=== PATIENT | male | born 1970 | race Caucasian/White ===

== ENCOUNTER → 2017-12-10 09:05 | Outpatient (CLI) | payer OTHER, SELFPAY | PROVIDERS: Visit Provider Nurse Practitioner Family | DX: R53.83 Other fatigue (principal); R10.12 Left upper quadrant pain; R11.0 Nausea; K85.90 Acute pancreatitis without necrosis or infection, unspecified; F41.9 Anxiety disorder, unspecified | CPT/HCPCS: 80053; 80061; 82652; 84439; 84443; 85025 ==

== ENCOUNTER → 2017-12-10 09:37 | Outpatient (REF) | payer OTHER, SELFPAY ==
[2017-12-10 10:06] LABS: Basophils # 0.1 K/mm3 (0-0.2); Basophils % 0.7 % (0.1-2.0); Eosinophils # 0.2 K/mm3 (0.0-0.4); Eosinophils % 2.6 % (0.1-12.0); Hematocrit 41.5 % (42.0-52.0); Hemoglobin 13.9 g/dL (14.1-18.0); Lymphocytes # 1.6 K/mm3 (0.7-4.5); Lymphocytes % 19.9 K/mm3 (10-50); Mean Corpuscular HGB Conc 33.6 g/dL (31.8-35.4); Mean Corpuscular Hemoglobin 29.5 pg (27.0-31.2); Mean Corpuscular Volume 87.8 fl (80-94); Mean Platelet Volume 8.5 fl (7.4-10.4); Monocytes # 0.5 K/mm3 (0.1-1.0); Monocytes % 6.2 % (1.7-9.3); Neutrophils # 5.8 K/mm3 (1.8-7.8); Neutrophils % 70.6 % (37.0-80.0); Platelet Count 199 K/mm3 (142-424); Red Blood Count 4.73 M/mm3 (4.60-6.20); Red Cell Distribution Width 13.9 % (11.5-17.5); White Blood Count 8.2 K/mm3 (4.8-10.8)
[2017-12-10 10:35] LABS: Glucose,Fasting 118 mg/dL (60-105)
[2017-12-10 11:21] LABS: Alanine Aminotransferase 34 U/L (12-78); Albumin Level 4.1 gm/dL (3.4-5.0); Albumin/Globulin Ratio 1.1 (1.1-1.8); Alkaline Phosphatase 68 U/L (46-116); Anion Gap 13.6 mEq/L (5-15); Aspartate Amino Transferase 13 U/L (15-37); Bilirubin,Total 0.4 mg/dL (0.2-1.0); Blood Urea Nitrogen 39 mg/dL (7-18); Calcium 8.6 mg/dL (8.5-10.1); Carbon Dioxide 29 mmol/L (21.0-32.0); Chloride 103 mmol/L (98-107); Cholesterol 129 mg/dL (140-200); Creatinine,Serum 2.14 mg/dL (0.70-1.30); Estimated Glomerular Filt Rate 33 ml/min (>60); Free T4 (Free Thyroxine) 0.75 ng/dl (0.76-1.46); GFR (African American) 40 ML/MIN (>60); Globulin 3.6 gm/dl (1.3-3.2); Glucose 110 mg/dL (74-106); HDL Cholesterol 66 mg/dL (27-67); LDL Cholesterol 54 mg/dL (0-130); Potassium 4.6 mmoL/L (3.5-5.1); Sodium 141 mmol/L (136-145); Thyroid Stimulating Hormone 4.65 uIU/ml (0.358-3.740); Total Protein,Serum 7.7 gm/dL (6.4-8.2); Triglycerides 43 mg/dL (30-200); VLDL Cholesterol 9 mg/dL (0-40)
[2017-12-10 11:24] LABS: Glucose 1 Hour 225 mg/dL
[2017-12-10 13:15] LABS: Glucose 2 Hour 167 mg/dL
[2017-12-12 11:10] LABS: Vitamin D 25 Hydroxy 25.6 ng/mL (30.0-100.0)
== END ==
LOC: LAB 09:37
PROVIDERS: Nurse Practitioner Family; Family Provider Emergency Medicine; PCP Emergency Medicine; Visit Provider Internal Medicine
DX: R53.83 Other fatigue (principal)
CPT/HCPCS: 36415; 80053; 80061; 82652; 82951; 84439; 84443; 85025

== ENCOUNTER → 2018-01-14 13:01 | Outpatient (CLI) | payer OTHER, SELFPAY ==
[2018-01-14 15:03] LABS: Anion Gap 14.2 mEq/L (5-15); Blood Urea Nitrogen 29 mg/dL (7-18); Carbon Dioxide 29 mmol/L (21.0-32.0); Chloride 102 mmol/L (98-107); Creatinine,Serum 1.41 mg/dL (0.70-1.30); Estimated Glomerular Filt Rate 54 ml/min (>60); GFR (African American) 65 ML/MIN (>60); Glucose 143 mg/dL (74-106); Potassium 4.2 mmoL/L (3.5-5.1); Sodium 141 mmol/L (136-145)
== END ==
PROVIDERS: PCP Emergency Medicine; Visit Provider Internal Medicine
DX: I25.10 Atherosclerotic heart disease of native coronary artery without angina pectoris (principal); Z95.5 Presence of coronary angioplasty implant and graft; I11.9 Hypertensive heart disease without heart failure; I25.2 Old myocardial infarction; F51.01 Primary insomnia; G47.33 Obstructive sleep apnea (adult) (pediatric); F17.200 Nicotine dependence, unspecified, uncomplicated; F10.10 Alcohol abuse, uncomplicated
CPT/HCPCS: 36415; 80048

== ENCOUNTER → 2018-04-11 08:09 | Outpatient (CLI) | payer OTHER, SELFPAY ==
--- NOTE | 2018-04-11 08:13 | CA_ITS ---
PROCEDURE: 2-D M-mode and color Doppler study INDICATIONS FOR THE TEST: Chest pain+ COPD Heart Murmur Tobacco Smoking+ Palpitations Fatigue+ Syncope Edema Hypertension+Diabetes Mellitus Rheumatic Fever SOB+EASTON+Obesity+Hyperlipidemia+ Family History HD Additional History dizziness, MARKOS, Hx of CM Definity utilized per order PATIENT INFORMATION HEIGHT: 73 WEIGHT:287 GENDER: Male B/P: 137/88 2-D/M-MODE INTERPRETATION: 2-D MEASUREMENTS OBSERVED VALUES IN CMS Right Ventricular Dimension (RVDd) 2.3 Interventricular Septum (Thickness)(IVsd) 1.2 Left Ventricular Internal Dimensions(LVIDd) 6.0 Left Ventricular Posterior Wall (Thickness)(LVPWd) 1.2 Aortic Root 3.1 Aortic Cusp Separation 2.3 Left Atrial Dimensions (LAD) 3.9 2D 1. Left atrium is mildly enlarged, left ventricle is mildly dilated, there is mild concentric left ventricular hypertrophy, there is reduced left ventricular systolic function, visually estimated ejection fraction 30%, there is mild hypo to akinesis involving mid to distal septum, anterior, anteroapical and inferobasal wall. There is no left ventricular thrombus seen, Definity contrast was utilized to delineate endocardial surfaces. 2. The right atrium and right ventricle are normal size and contractility. 3. The aortic valve is minimally thickened and fibrosed. 4. The mitral and tricuspid valve leaflets are minimally thickened. 5. The pulmonic valve is poorly visualized. 6. No significant pericardial effusion noted. DOPPLER INTERROGATION Doppler interrogation of the aortic, mitral and tricuspid valvular presence of mild mitral and tricuspid regurgitation, grade 1 diastolic dysfunction seen with tissue Doppler evidence of raised left atrial pressure. CONCLUSION: 1. Mildly enlarged left atrium, mildly dilated left ventricle, mild concentric left ventricular hypertrophy, visually estimated ejection fraction 30% with segmental wall motion abnormality described above, there is no left ventricular thrombus seen, Definity contrast was utilized to delineate endocardial surfaces. Grade 1 diastolic dysfunction seen with tissue Doppler evidence of raised left atrial pressure. 2. Mild mitral and tricuspid regurgitation 3. No significant pericardial effusion noted.
== END ==
PROVIDERS: Family Provider Emergency Medicine; PCP Emergency Medicine; Visit Provider Internal Medicine Cardiovascular Disease
DX: R07.2 Precordial pain (principal); Z86.79 Personal history of other diseases of the circulatory system
CPT/HCPCS: 93306

== ENCOUNTER → 2018-06-18 20:25 | Outpatient (CLI) | payer OTHER, SELFPAY | PROVIDERS: PCP Emergency Medicine; Visit Provider Internal Medicine Cardiovascular Disease | DX: G47.33 Obstructive sleep apnea (adult) (pediatric) (principal); I10 Essential (primary) hypertension | CPT/HCPCS: 95810 ==

== ENCOUNTER → 2018-06-24 14:22 | Outpatient (CLI) | payer OTHER, SELFPAY ==
[2018-06-24 15:20] LABS: Anion Gap 16.2 mEq/L (5-15); Blood Urea Nitrogen 24 mg/dL (7-18); Calcium 9.6 mg/dL (8.5-10.1); Carbon Dioxide 28 mmol/L (21.0-32.0); Chloride 101 mmol/L (98-107); Creatinine,Serum 1.58 mg/dL (0.70-1.30); Estimated Glomerular Filt Rate 47 ml/min (>60); GFR (African American) 57 ML/MIN (>60); Glucose 145 mg/dL (74-106); Potassium 4.2 mmoL/L (3.5-5.1); Sodium 141 mmol/L (136-145)
== END ==
PROVIDERS: PCP Emergency Medicine; Visit Provider Physician Assistant
DX: I42.9 Cardiomyopathy, unspecified (principal); I50.9 Heart failure, unspecified
CPT/HCPCS: 36415; 80048; 83880

== ENCOUNTER → 2018-07-08 13:29 | Outpatient (CLI) | payer OTHER, SELFPAY ==
[2018-07-08 16:07] LABS: Anion Gap 13.8 mEq/L (5-15); Blood Urea Nitrogen 28 mg/dL (7-18); Calcium 9.1 mg/dL (8.5-10.1); Carbon Dioxide 29 mmol/L (21.0-32.0); Chloride 105 mmol/L (98-107); Creatinine,Serum 1.31 mg/dL (0.70-1.30); Estimated Glomerular Filt Rate 59 ml/min (>60); GFR (African American) 71 ML/MIN (>60); Glucose 110 mg/dL (74-106); Potassium 4.8 mmoL/L (3.5-5.1); Sodium 143 mmol/L (136-145)
== END ==
PROVIDERS: Family Provider Emergency Medicine; PCP Emergency Medicine; Visit Provider Physician Assistant
DX: I11.9 Hypertensive heart disease without heart failure (principal)
CPT/HCPCS: 36415; 80048

== ENCOUNTER → 2018-07-10 15:01 | Outpatient (CLI) | payer OTHER, SELFPAY ==
--- NOTE | 2018-07-10 15:01 | CA_ITS ---
PROCEDURE: 2-D M-mode and color Doppler study INDICATIONS FOR THE TEST: Chest painx COPD Heart Murmur Tobacco Smokingx Palpitationsx Fatigue Syncope Edema HypertensionxDiabetes Mellitus Rheumatic Fever SOBxDOE Obesity Hyperlipidemiax Family History HD Additional History Old VA, Pericarditis Definity contrast utilized. PATIENT INFORMATION HEIGHT: 6'1'' WEIGHT: 289 GENDER: Male B/P: 134/79 2-D/M-MODE INTERPRETATION: 2-D MEASUREMENTS OBSERVED VALUES IN CMS Right Ventricular Dimension (RVDd) 2.6 Interventricular Septum (Thickness)(IVsd) 1.0 Left Ventricular Internal Dimensions(LVIDd) 5.7 Left Ventricular Posterior Wall (Thickness)(LVPWd) 1.0 Aortic Root 2.9 Aortic Cusp Separation 2.3 Left Atrial Dimensions (LAD) 4.6 2D 1. Left atrium is mildly enlarged, left ventricle is normal size, visually estimated ejection fraction approximately 40%, there is marked hypokinesis involving mid to distal septum, anteroapical and apical wall. 2. The right atrium and right ventricle are normal size and contractility. 3. The aortic valve is minimally thickened and fibrosed. 4. The mitral and tricuspid valve are grossly normal. 5. The pulmonic valve is poorly visualized. 6. No significant pericardial effusion noted. DOPPLER INTERROGATION: Doppler interrogation of the aortic, mitral and tricuspid valvular presence of mild mitral and tricuspid regurgitation, tricuspid regurgitation jet velocity is insufficient for calculation of the right ventricular systolic pressure, grade 1 diastolic dysfunction seen with tissue Doppler evidence of raised left atrial pressure. CONCLUSION: 1. Mildly enlarged left atrium, normal left ventricular size, visually estimated ejection fraction of 40% with segmental wall motion abnormalities described above, Definity contrast was utilized to delineate endocardial surfaces. Grade 1 diastolic dysfunction seen with tissue Doppler evidence of raised left atrial pressure. 2. Mild mitral and tricuspid regurgitation 3. No significant pericardial effusion noted.
== END ==
PROVIDERS: Family Provider Emergency Medicine; PCP Emergency Medicine; Visit Provider Internal Medicine
DX: I31.9 Disease of pericardium, unspecified (principal); I11.9 Hypertensive heart disease without heart failure; F17.200 Nicotine dependence, unspecified, uncomplicated
CPT/HCPCS: 93306

== ENCOUNTER → 2018-10-16 18:02 | Outpatient (CLI) | payer OTHER, SELFPAY ==
[2018-10-16 19:41] LABS: Basophils # 0.1 K/mm3 (0-0.2); Basophils % 0.9 % (0.1-2.0); Eosinophils # 0.3 K/mm3 (0.0-0.4); Eosinophils % 3.6 % (0.1-12.0); Hematocrit 43.6 % (42.0-52.0); Hemoglobin 14.4 g/dL (14.1-18.0); Lymphocytes # 2.2 K/mm3 (0.7-4.5); Lymphocytes % 30.9 % (10-50); Mean Corpuscular HGB Conc 33.1 g/dL (31.8-35.4); Mean Corpuscular Hemoglobin 28.9 pg (27.0-31.2); Mean Corpuscular Volume 87.3 fl (80-94); Mean Platelet Volume 8.6 fl (7.4-10.4); Monocytes # 0.5 K/mm3 (0.1-1.0); Monocytes % 7.3 % (1.7-9.3); Neutrophils # 4.1 K/mm3 (1.8-7.8); Neutrophils % 57.3 % (37.0-80.0); Platelet Count 240 K/mm3 (142-424); Red Cell Distribution Width 13.6 % (11.5-17.5); White Blood Count 7.1 K/mm3 (4.8-10.8)
[2018-10-16 20:32] LABS: Alanine Aminotransferase 35 U/L (12-78); Albumin Level 4.2 gm/dL (3.4-5.0); Albumin/Globulin Ratio 1.2 (1.1-1.8); Alkaline Phosphatase 77 U/L (46-116); Anion Gap 15.8 mEq/L (5-15); Aspartate Amino Transferase 16 U/L (15-37); Bilirubin,Total 0.4 mg/dL (0.2-1.0); Blood Urea Nitrogen 23 mg/dL (7-18); Calcium 8.7 mg/dL (8.5-10.1); Carbon Dioxide 29 mmol/L (21.0-32.0); Chloride 101 mmol/L (98-107); Chol/HDL Ratio 2.7 (1-3.5); Cholesterol 136 mg/dL (140-200); Creatinine,Serum 1.47 mg/dL (0.70-1.30); Estimated Glomerular Filt Rate 51 ml/min (>60); GFR (African American) 62 ML/MIN (>60); Globulin 3.5 gm/dl (1.3-3.2); Glucose 122 mg/dL (74-106); HDL Cholesterol 50 mg/dL (27-67); LDL Cholesterol 68 mg/dL (0-130); Potassium 4.8 mmoL/L (3.5-5.1); Sodium 141 mmol/L (136-145); T4 (Thyroxine) 7.5 ug/dl (4.7-13.3); Thyroid Stimulating Hormone 4.17 uIU/ml (0.358-3.740); Total Protein,Serum 7.7 gm/dL (6.4-8.2); Triglycerides 90 mg/dL (30-200); VLDL Cholesterol 18 mg/dL (0-40)
[2018-10-17 13:49] LABS: Hemoglobin A1C 6.1 % (0.0-7.0)
[2018-10-18 10:58] LABS: PSA, Free 0.07 ng/mL; Prostate Specific Ag 0.2 ng/mL (0.0-4.0)
== END ==
PROVIDERS: Visit Provider Physician Assistant
DX: E03.9 Hypothyroidism, unspecified (principal)
CPT/HCPCS: 80053; 80061; 82652; 83036; 84153; 84154; 84436; 84443; 85025

== ENCOUNTER → 2018-11-13 12:35 | Outpatient (CLI) | payer OTHER, SELFPAY ==
--- NOTE | 2018-11-13 12:41 | XR_ITS ---
XR shoulder RT min 2V HISTORY: Right shoulder pain ITS.REASON: Bilateral shoulder pain ORDERING PHYSICIAN: DUNIA Cordero PATIENT AGE: 48 years Comparison: None FINDINGS: There is moderate subacromial stenosis 5 mm with osteoarthritic changes of the glenohumeral joint. There are hypertrophic changes along the inferior surface of the acromion Osteophyte formation is present along the inferior aspect of the humeral head and glenoid fossa. IMPRESSION: Subacromial stenosis with osteoarthritis
--- NOTE | 2018-11-13 12:41 | XR_ITS ---
XR shoulder LT min 2V HISTORY: Left shoulder pain ITS.REASON: Bilateral shoulder pain ORDERING PHYSICIAN: DUNIA Cordero PATIENT AGE: 48 years Comparison: None FINDINGS: There is moderate subacromial stenosis of 5 mm. No fracture or dislocation. Calcification is noted along the humeral head laterally and could be due to bony hypertrophy or calcific tendinitis. Otherwise negative IMPRESSION: Subacromial stenosis with possible calcific tendinitis of the left shoulder
== END ==
PROVIDERS: PCP Physician Assistant; Visit Provider Physician Assistant
DX: M25.511 Pain in right shoulder (principal); M25.512 Pain in left shoulder
CPT/HCPCS: 73030

== ENCOUNTER → 2018-11-26 07:29 | Outpatient (CLI) | payer OTHER, SELFPAY ==
--- NOTE | 2018-11-26 07:34 | CA_ITS ---
PROCEDURE: 2-D echo Doppler INDICATIONS FOR THE TEST: Chest pain+ COPD Heart Murmur Tobacco Smoking+ Palpitations Fatigue Syncope Edema+ Hypertension+Diabetes Mellitus Rheumatic Fever SOB+EASTON+Obesity+Hyperlipidemia+ Family History HD Additional History cad,cm PATIENT INFORMATION HEIGHT: 73 WEIGHT:318 GENDER: Male B/P:140/96 2-D/M-MODE INTERPRETATION: 2-D MEASUREMENTS OBSERVED VALUES IN CMS Right Ventricular Dimension (RVDd) 2.4 Interventricular Septum (Thickness)(IVsd) 0.9 Left Ventricular Internal Dimensions(LVIDd) 5.8 Left Ventricular Posterior Wall (Thickness)(LVPWd) 0.9 Aortic Root 2.6 Aortic Cusp Separation 2.2 Left Atrial Dimensions (LAD) 4.6 2D 1. Technically difficult study because of the patient's factor and poor acoustic windows 2. The left atrium is mildly enlarged, left ventricle is mildly dilated, visually estimated ejection fraction 40-45%, there is marked hypokinesis involving mid to distal septum, anteroapical and apical wall. 3. The right atrium and right ventricle are normal size and contractility. 4. The aortic valve is thickened and calcified leaflet continue to display mobility. 5. The mitral and tricuspid valvular grossly normal. 6. The pulmonic valve is poorly visualized and a consent. 7.No significant pericardial effusion noted. DOPPLER INTERROGATION: Doppler interrogation of the aortic, mitral and tricuspid valvular presence of mild mitral and tricuspid regurgitation, tricuspid regurgitation jet velocity is inadequate for calculation of the right ventricular systolic pressure, grade 1 diastolic dysfunction seen with tissue Doppler evidence of raised left atrial pressure. CONCLUSION: 1. Technically difficult study because of the patient's factor and poor acoustic windows 2. The left atrium is mildly enlarged, left ventricle is mildly dilated, visually estimated ejection fraction approximately 40-45% with segmental wall motion abnormality described above. Grade 1 diastolic dysfunction seen with tissue Doppler evidence of raised left atrial pressure. 3. Mild mitral and tricuspid regurgitation 4. No significant pericardial effusion noted
--- NOTE | 2018-11-26 07:34 | NM_ITS ---
History and Indications: Coronary artery disease, previous OK, obesity, hypertension, hyperlipidemia, chronic tobacco use, family history, chest pain, shortness of breath syncope and fatigue Procedure: Patient received 0.4 mg of intravenous Lexiscan, resting heart rate was 72 bpm resting blood pressure 128/82, with Lexiscan maximum heart rate achieved was 97 bpm which is less than 85% of the maximum predicted heart rate and a blood pressure was 144/70. With Lexiscan patient complained of mild chest discomfort and shortness of breath Electrocardiogram: Resting electrocardiogram showed sinus rhythm nonspecific ST-T changes, anterior infarct age indeterminate., With Lexiscan there is less than 1.[address] segment depression noted from the baseline EKG. The EKG portion of the Lexiscan Myoview is nondiagnostic. Cardiac stress and resting SPECT images: Cardiac stress and resting SPECT images were obtained using technetium 99 Myoview 32.4 mCi stress and 10.5 mCi at rest. Gated SPECT further analysis of segmental wall motion and calculation of the ejection fraction also done. Cardiac stress and resting SPECT images show moderate to large size area of fixed defect involving the anterior, anteroapical, apex, inferior apical wall in a fixed pattern consistent with area of myocardial scarring with minimal pauly-infarct ischemia. Computer derived ejection fraction is 38% with marked hypokinesis involving the anterior, anteroapical, apex and inferior apical wall. Right ventricle is normal size and contractility. Conclusion: 1. The EKG portion of the Lexiscan Myoview is nondiagnostic. 2. Scintigraphic evidence of myocardial scarring involving the anterior, anteroapical, apex, inferior apical wall. Without significant pauly-infarct ischemia. Computer derived ejection fraction is 38% with segmental wall motion abnormality described above, right ventricle is normal size and contractility. 3. Abnormal Lexiscan Myoview study.
--- NOTE | 2018-11-26 08:06 | HMH.ITSHM ---
Current Home Medications as stated by this patient Holden Yu or business banking representative. []CARVEDILOL LOSARTAN ATORVASTATIN ASA LOBOXITRINE LASIX VISTERIL
== END ==
PROVIDERS: PCP Emergency Medicine; Visit Provider Internal Medicine
DX: R07.89 Other chest pain (principal); R06.02 Shortness of breath; I25.10 Atherosclerotic heart disease of native coronary artery without angina pectoris; I25.2 Old myocardial infarction; I42.9 Cardiomyopathy, unspecified; I51.9 Heart disease, unspecified
CPT/HCPCS: 78452; 93017; 93306; A9502; J2785

== ENCOUNTER → 2018-12-04 09:20 | Outpatient (CLI) | payer OTHER, SELFPAY ==
--- NOTE | 2018-12-04 09:26 | XR_ITS ---
XR shoulder RT min 2V HISTORY: Right shoulder pain ITS.REASON: grashy, supraspinatus, axillary views ORDERING PHYSICIAN: Sunil Colindres MD PATIENT AGE: 48 years Comparison: None FINDINGS: Downward sloping acromion is noted with subacromial stenosis. Moderate to severe osteoarthritic changes are present at the glenohumeral joint. Hypertrophic changes are present along the inferior aspect of the acromion. No fracture or dislocation. IMPRESSION: Moderate to severe osteoarthritis of the glenohumeral joint with subacromial stenosis with a downsloping acromion and hypertrophic change along the inferior margin of the acromion
--- NOTE | 2018-12-04 09:26 | XR_ITS ---
XR shoulder LT min 2V HISTORY: Left shoulder pain ITS.REASON: grashy, axillary, supraspinatus ORDERING PHYSICIAN: Sunil Colindres MD PATIENT AGE: 48 years Comparison: 11/13/2018 FINDINGS: There are mild osteoarthritic changes of the glenohumeral joint. No fracture or dislocation. Previously noted calcific density along the greater tuberosity not demonstrated on these views. IMPRESSION: Mild osteoarthritis of left shoulder
== END ==
PROVIDERS: PCP Emergency Medicine; Visit Provider Orthopaedic Surgery
DX: M25.511 Pain in right shoulder (principal); M25.512 Pain in left shoulder
CPT/HCPCS: 73030

== ENCOUNTER → 2019-06-25 09:44 | Outpatient (CLI) | payer OTHER, SELFPAY ==
[2019-06-25 11:44] LABS: Anion Gap 13.8 mEq/L (5-15); Blood Urea Nitrogen 27 mg/dL (7-18); Calcium 9.3 mg/dL (8.5-10.1); Carbon Dioxide 29 mmol/L (21.0-32.0); Chloride 101 mmol/L (98-107); Creatinine,Serum 1.18 mg/dL (0.70-1.30); Estimated Glomerular Filt Rate 66 ml/min (>60); GFR (African American) 80 ML/MIN (>60); Glucose 141 mg/dL (74-106); Potassium 4.8 mmoL/L (3.5-5.1); Sodium 139 mmol/L (136-145)
== END ==
PROVIDERS: Visit Provider Urology
DX: I11.9 Hypertensive heart disease without heart failure (principal)
CPT/HCPCS: 36415; 80048

== ENCOUNTER → 2019-11-30 08:03 | Outpatient (CLI) | payer OTHER, SELFPAY ==
--- NOTE | 2019-11-30 08:04 | CA_ITS ---
APPROVED REPORT EXAM: Comprehensive 2D, Doppler, and color-flow Echocardiogram Carpenter General: Matilda Barajas RDCS Ht: 6 ft 1 in Wt: 320lbs BSA: 2.63 BP: 140/89 mmHg Indications: Shortness of Breath, Obesity, CAD, Hyperlipidemia, Cardiomyopathy, Hypertension/HDD 2D Dimensions LVOT 2.01 cm (M/F) 1.5-2.5 M-Mode Dimensions RVDd 3.97 cm (0.9-2.6) LVDd 5.93 cm (3.5-5.7) LVDs 4.37 cm (3.5-5.7) IVSd 0.89 cm (0.6-1.1) PWd 0.94 cm (0.6-1.1) EF (Teich) 50.70% FS 26.30% EDV (Teich) 175.20 mL ESV (Teich) 86.30 mL LV Diastology E/A Ratio 0.87 Mitral Valve MV A Velocity 91.00 (40-130 cm/s) MV PHT 73.00 ms Left Ventricle Left atrium is mildly enlarged, left ventricle is normal size, mild concentric left ventricular hypertrophy, visually estimated ejection fraction approximately 35%, there is marked hypokinesis involving the mid to distal septum, anterior and anterior apical wall. Grade 1 diastolic dysfunction seen with tissue Doppler evidence of raise left atrial pressure. Right Ventricle Right atrium and right ventricular mildly enlarged with normal contractility. Aortic Valve Aortic valve is minimally thickened and fibrosed. There is no aortic stenosis or aortic insufficiency. Mitral Valve Mitral valve is grossly normal, there is mild mitral regurgitation. Tricuspid Valve Tricuspid valve is grossly normal, there is mild tricuspid regurgitation. Tricuspid regurgitation jet velocity is inadequate for calculation of the right ventricular systolic pressure. Pulmonic Valve Pulmonic valve is poorly visualized. Great Vessels Aortic root is normal size. Pericardium No significant pericardial effusion noted. Conclusion 1. Mildly enlarged left atrium, normal left ventricular size, mild concentric left ventricular hypertrophy, visually estimated ejection fraction 35% with segmental wall motion abnormality described above, grade 1 diastolic dysfunction seen with tissue Doppler evidence of raise left atrial pressure. 2. Mildly enlarged right ventricle with normal contractility. 3. Mild mitral and tricuspid regurgitation. 4. No significant pericardial effusion noted. Electronically signed by : Sandip Piña, 12/01/2019 05:53:43
== END ==
PROVIDERS: PCP Emergency Medicine; Visit Provider Nurse Practitioner Family
DX: I42.9 Cardiomyopathy, unspecified (principal); E78.5 Hyperlipidemia, unspecified; F17.200 Nicotine dependence, unspecified, uncomplicated; I11.9 Hypertensive heart disease without heart failure; I25.10 Atherosclerotic heart disease of native coronary artery without angina pectoris; I51.89 Other ill-defined heart diseases
CPT/HCPCS: 93306

== ENCOUNTER → 2022-01-24 08:55 | Outpatient (CLI) | payer OTHER, SELFPAY ==
--- NOTE | 2022-01-24 08:56 | CA_ITS ---
APPROVED REPORT EXAM: Comprehensive 2D, Doppler, and color-flow Echocardiogram Junior Technical Writer: Aisha White, JACOBY, RVS Ht: 6 ft 2 in Wt: 330lbs BSA: 2.69 BP: 138/79 mmHg Indications: CAD, CM, Diastolic dysfunction, HTN, HLD, Smoker, Obesity 2D Dimensions IVSd 1.57 cm LVEF (Visual) 42.30 % PWd 1.11 cm LA Volume 97.30 mL LVDd 5.42 cm LA Volume Index 36.20 mL/m2 (M/F) 16-34 LVDs 4.28 cm Aortic Root 3.08 cm Left Atrium 4.05 cm LVOT 2.00 cm (M/F) 1.5-2.5 M-Mode Dimensions RVDd 2.86 cm (0.9-2.6) LA Diam 4.90 cm (1.9-4.0) LVDd 6.16 cm (3.5-5.7) Ao Diam 3.13 cm (2.0-3.7) LVDs 4.15 cm (3.5-5.7) IVSd 1.39 cm (0.6-1.1) PWd 1.13 cm (0.6-1.1) EF (Teich) 60.00% EPSs 0.85 cm FS 32.60% EDV (Teich) 191.10 mL TAPSE 2.78 (<1.7) ESV (Teich) 76.40 mL LV Diastology E Decel Time 287.00 (160-240 msec) E/A Ratio 0.85 MED E' 6.90 (< 7 cm/sec) MED A' 10.60 cm/s E'/MED E' Ratio 12.13 (>14) LAT E' 7.60 (<10 cm/sec) LAT A' 8.90 cm/s E/LAT E' Ratio 11.01 (>14) Aortic Valve LVOT Max 123.00 (70-110 cm/s) LVOT VTI 26.74 cm AoV Peak Ian. 181.00 (50-130 cm/s) AO Peak GR. 13.10 mmHg AO Mean GR. 6.30 (<5 mmHg) AO VTI 33.46 (18-25 cm) CARON (VTI) 2.51 (2.5-4.5 cm2) Mitral Valve MV A Velocity 98.00 (40-130 cm/s) E/A Ratio 0.85 MV Decel. Time 287.00 (160-240 ms) MV Mean Gr. 2.20 (<2mmHg) MV PHT 82.00 ms Pulmonary Valve PV Peak Velocity 113.00 (50-150 cm/s) OR End VMAX 267.00 cm/s Tricuspid Valve TR P. Velocity 155.00 cm/s RAP Estimate 10.00 mmHg RVSP 19.60 mmHg Left Ventricle Left atrium is mildly enlarged, left ventricle is normal size, mild concentric left ventricular hypertrophy, estimated ejection fraction approximately 40%, there is marked hypokinesis involving the mid to distal septum and inferior apical wall. Grade 1 diastolic dysfunction seen without tissue Doppler evidence of raise left atrial pressure. Right Ventricle Right atrium and right ventricle are normal size and contractility. Aortic Valve Aortic valve is minimally thickened and fibrosed, there is no aortic stenosis or aortic insufficiency. Mitral Valve Mitral valve grossly normal, there is trace mitral regurgitation. Tricuspid Valve Tricuspid grossly normal, there is trace tricuspid regurgitation, tricuspid regurgitation jet versus inadequate for calculation of the right ventricular systolic function. Pulmonic Valve Pulmonic valve is poorly visualized. Great Vessels Aortic root is normal size. Inferior vena cava is poorly visualized. Pericardium No significant pericardial effusion noted. Conclusion 1. Mildly in the left lung, normal left ventricular size, mild concentric left ventricular hypertrophy, estimated ejection fraction 40% with segmental wall motion abnormality described above, grade 1 diastolic dysfunction seen without tissue Doppler evidence of raise left atrial pressure. 2. Trace mitral and tricuspid regurgitation. 3. No significant pericardial effusion 4. Inferior vena cava is poorly visualized. Electronically signed by : Sandip Piña MD 01/24/2022 21:04:27
== END ==
PROVIDERS: Visit Provider Internal Medicine Cardiovascular Disease
DX: I50.20 Unspecified systolic (congestive) heart failure (principal)
CPT/HCPCS: 93306

== ENCOUNTER → 2023-05-10 11:15 | Outpatient (CLI) | payer OTHER, SELFPAY ==
--- NOTE | 2023-05-10 11:33 | US_ITS ---
FINAL REPORT CLINICAL HISTORY: numbness and tingling in feet SMOKER CAD PRE DIABETIC COMPARISON: None FINDINGS: ANKLE-BRACHIAL PRESSURE INDICES Pressure indices are as follows: RIGHT LOWER EXTREMITY: Ankle-brachial pressure index: 1.3 Comments: Normal LEFT LOWER EXTREMITY: Ankle-brachial pressure index: 1.3 Comments: Normal IMPRESSION: No evidence of significant obstructive peripheral vascular disease of the lower extremities Reviewed, Interpreted and Dictated by Jayda Todd MD Transcribed by Mayra Vicente Authenticated and [facility]
== END ==
PROVIDERS: PCP Emergency Medicine; Visit Provider Nurse Practitioner
DX: R20.0 Anesthesia of skin (principal); R20.2 Paresthesia of skin
CPT/HCPCS: 93923

== ENCOUNTER → 2023-07-12 14:41 | Outpatient (CLI) | payer OTHER, SELFPAY | PROVIDERS: PCP Nurse Practitioner Family; Visit Provider Nurse Practitioner Family | DX: R06.02 Shortness of breath (principal) | CPT/HCPCS: 94060; 94618; 94726; 94729 ==

== ENCOUNTER → 2023-07-18 11:49 | Outpatient (CLI) | payer OTHER, SELFPAY ==
[2023-07-18 12:58] VITALS: BMI 40.3
== END ==
PROVIDERS: PCP Nurse Practitioner Family; Visit Provider Nurse Practitioner Family
DX: E11.9 Type 2 diabetes mellitus without complications (principal)
CPT/HCPCS: 97802

== ENCOUNTER 2023-11-19 14:29 | Outpatient (CLI) | payer OTHER, SELFPAY ==
--- NOTE | 2023-11-19 14:30 | CA_ITS ---
APPROVED REPORT EXAM: Comprehensive 2D, Doppler, and color-flow Echocardiogram Missing Persons Investigator: Sissy Finn RVT Ht: 6 ft 1 in Wt: 311lbs BSA: 2.60 BP: 128/92 mmHg Indications: CM,EF OF 40% ON 02/09,ABN EKG,CAD,SMOKER,SOA,HTN,HLD 2D Dimensions LA Volume 60.80 mL LA Volume Index 23.38 mL/m2 (M/F) 16-34 M-Mode Dimensions RVDd 3.08 cm (0.9-2.6) LA Diam 5.11 cm (1.9-4.0) LVDd 5.72 cm (3.5-5.7) LVDs 3.71 cm (3.5-5.7) IVSd 0.94 cm (0.6-1.1) PWd 0.76 cm (0.6-1.1) EF (Teich) 63.70% FS 35.10% EDV (Teich) 161.30 mL TAPSE 3.31 (<1.7) ESV (Teich) 58.50 mL LV Diastology E Decel Time 227 (160-240 msec) E/A Ratio 0.9 Aortic Valve CARON Index 1.21 cm2/m2 AoV Peak Ian. 149.0 (50-130 cm/s) AO Peak GR. 8.90 mmHg AO Mean GR. 4.70 (<5 mmHg) AO VTI 30.0 (18-25 cm) CARON (VTI) 3.21 (2.5-4.5 cm2) Mitral Valve MV E Max Ian. 79.0 (40-130 cm/s) MV A Velocity 88.0 (40-130 cm/s) E/A Ratio 0.90 MV PHT 66.0 ms Pulmonary Valve PV Peak Velocity 94.0 (50-150 cm/s) Left Ventricle The left ventricle is normal size. Left ventricular systolic function is mildly decreased. There is normal left ventricular wall thickness. There is mild global hypokinesis present. There is near akinesis of the mid to distal LV heck in the LV apex. The left ventricular diastolic function is normal. LVEF is 40-45%. Right Ventricle The right ventricle is normal size. The right ventricular systolic function is normal. Atria The left atrium size is normal. The right atrium size is normal. There is no Doppler evidence of interatrial shunt. Aortic Valve The aortic valve opens well. There is no aortic valvular stenosis. No aortic regurgitation is present. Mitral Valve The mitral valve is normal in structure. No evidence of mitral valve stenosis. There is no mitral valve regurgitation noted. Tricuspid Valve The tricuspid valve leaflets are thin and pliable. Trace tricuspid regurgitation. There is insufficient TR jet to estimate RVSP. Pulmonic Valve The pulmonary valve is normal in structure. Trace pulmonic regurgitation. Great Vessels The aortic root is normal in size. The ascending aorta is normal in size. IVC is normal in size and collapses >50% with inspiration. Pericardium There is no pericardial effusion. Other Information Study Quality: Fair Conclusion Mildly reduced LV systolic function (LVEF 40-45%). Near akinesis of the mid to distal LV heck in the LV apex. No significant valvular stenosis or regurgitation. Compared to prior study from 01/2022, the LVEF and regional wall motion abnormalities are unchanged. Electronically signed by : Margret Jimenes MD 11/21/2023 12:00:37
== END 2023-11-19 23:59 ==
LOC: RT 14:30
PROVIDERS: PCP Nurse Practitioner Family; Visit Provider Physician Assistant
DX: I42.8 Other cardiomyopathies (principal); R20.2 Paresthesia of skin; I25.10 Atherosclerotic heart disease of native coronary artery without angina pectoris; I11.9 Hypertensive heart disease without heart failure; R94.31 Abnormal electrocardiogram [ECG] [EKG]; K21.9 Gastro-esophageal reflux disease without esophagitis; E78.5 Hyperlipidemia, unspecified; F17.200 Nicotine dependence, unspecified, uncomplicated; G47.33 Obstructive sleep apnea (adult) (pediatric)
CPT/HCPCS: 93306

== ENCOUNTER 2024-07-31 15:24 | Outpatient (CLI) | payer OTHER, SELFPAY ==
--- NOTE | 2024-07-31 15:29 | CA_ITS ---
FINAL REPORT TECHNIQUE: Ultrasound images of the deep venous system were obtained from the left groin to the calf veins. CLINICAL HISTORY: edema in LLE, HTN COMPARISON: None FINDINGS: The deep venous system is normally compressible. Normal flow is identified. IMPRESSION: No evidence of left lower extremity DVT. Reviewed, Interpreted and Dictated by Chalino Sauceda III, MD Transcribed by Leonarda Hopper Authenticated and [facility]
[2024-07-31 16:21] LABS: Basophils # 0.1 K/mm3 (0-0.2); Basophils % 1.3 % (0.1-2.0); Eosinophils # 0.2 K/mm3 (0.0-0.4); Eosinophils % 3.7 % (0.1-12.0); Hematocrit 42.8 % (42.0-52.0); Hemoglobin 14.6 g/dL (14.1-18.0); Lymphocytes # 2.1 K/mm3 (0.7-4.5); Lymphocytes % 32.8 % (10-50); Mean Corpuscular Hemoglobin 30.7 pg (27.0-31.2); Mean Corpuscular Volume 90.3 fl (80-94); Monocytes # 0.4 K/mm3 (0.1-1.0); Monocytes % 6.6 % (1.7-9.3); Neutrophils # 3.6 K/mm3 (1.8-7.8); Neutrophils % 55.6 % (37.0-80.0); Platelet Count 185 K/mm3 (142-424); Red Blood Count 4.74 M/mm3 (4.60-6.20); Red Cell Distribution Width 14.1 % (11.5-17.5); White Blood Count 6.4 K/mm3 (4.8-10.8)
[2024-07-31 16:53] LABS: Albumin Level 4.8 g/dl (3.5-5.0); Chloride 102 mmol/L (98-107); Potassium 4.6 mmoL/L (3.5-5.1); Sodium 137 mmol/L (136-145)
[2024-07-31 16:56] LABS: Alanine Aminotransferase 66 U/L (12-78); Alkaline Phosphatase 69 U/L (38-126); Anion Gap 14.6 mEq/L (5-15); Aspartate Amino Transferase 58 U/L (17-59); Bilirubin,Direct 0.3 mg/dl (0.0-0.4); Bilirubin,Indirect 0.3 mg/dL (0.0-0.9); Bilirubin,Total 0.6 mg/dl (0.2-1.3); Bilirubin,Unconjugated 0.3 mg/dL (0.0-1.1); Blood Urea Nitrogen 24 mg/dl (9-20); Calcium 9.5 mg/dl (8.4-10.2); Carbon Dioxide 25 mmol/L (22.0-30.0); Cholesterol 143 mg/dl (140-200); Estimated Glomerular Filt Rate 58 ml/min (>60); GFR (African American) 70 ML/MIN (>60); Glucose 288 mg/dl (74-100); Triglycerides 72 mg/dl (30-150); VLDL Cholesterol 14 mg/dL (0-40)
[2024-07-31 16:57] LABS: Chol/HDL Ratio 3.2 (1-3.5); HDL Cholesterol 45 mg/dl (40-60)
[2024-07-31 17:08] LABS: Direct LDL Cholesterol 78.31 mg/dL (100-129)
[2024-07-31 17:13] LABS: Free T4 (Free Thyroxine) 1.21 ng/dl (0.78-2.19)
[2024-07-31 17:27] LABS: Thyroid Stimulating Hormone 4.61 uIU/mL (0.465-4.68)
== END 2024-07-31 23:59 | disposition home or self-care (01) ==
LOC: RT 15:25
PROVIDERS: PCP Nurse Practitioner Family; Visit Provider Nurse Practitioner Family
DX: I50.20 Unspecified systolic (congestive) heart failure (principal); R60.0 Localized edema
CPT/HCPCS: 36415; 80048; 80061; 80076; 84439; 84443; 85025; 93971

== ENCOUNTER 2024-12-16 15:49 | Outpatient (CLI) | payer OTHER, SELFPAY ==
[2024-12-17 13:28] LABS: Alanine Aminotransferase 51 U/L (12-78); Albumin Level 5.3 g/dl (3.5-5.0); Albumin/Globulin Ratio 1.8 (1.1-1.8); Alkaline Phosphatase 70 U/L (38-126); Anion Gap 21.5 mEq/L (5-15); Aspartate Amino Transferase 39 U/L (17-59); Bilirubin,Total 0.5 mg/dl (0.2-1.3); Blood Urea Nitrogen 28 mg/dl (9-20); Calcium 9.8 mg/dl (8.4-10.2); Carbon Dioxide 21 mmol/L (22.0-30.0); Chloride 102 mmol/L (98-107); Estimated Glomerular Filt Rate 70 ml/min (>60); GFR (African American) 85 ML/MIN (>60); Globulin 2.9 g/dL (1.3-3.2); Glucose 174 mg/dl (74-100); Potassium 5.5 mmoL/L (3.5-5.1); Sodium 139 mmol/L (136-145); Total Protein,Serum 8.2 g/dl (6.3-8.2)
== END 2024-12-16 23:59 | disposition home or self-care (01) ==
LOC: LAB.DROPOF 12-17 15:50
PROVIDERS: PCP Family Medicine; Visit Provider Family Medicine
DX: E11.22 Type 2 diabetes mellitus with diabetic chronic kidney disease (principal); N18.31 Chronic kidney disease, stage 3a
CPT/HCPCS: 80053

== ENCOUNTER 2024-12-16 22:08 | Outpatient (CLI) | payer OTHER, SELFPAY ==
[2024-12-17 00:45] LABS: Prostate Specific Ag Screen 0.2 ng/ml (0.0-4.0)
[2024-12-17 13:55] LABS: Microalbumin/Creatinine Ratio 16.3
[2024-12-17 14:09] LABS: Creatinine,Urine Random 82 mg/dL (Not Estab.)
== END 2024-12-16 23:59 | disposition home or self-care (01) ==
LOC: LAB.DROPOF 22:09
PROVIDERS: PCP Family Medicine; Visit Provider Family Medicine
DX: Z12.5 Encounter for screening for malignant neoplasm of prostate (principal); E11.22 Type 2 diabetes mellitus with diabetic chronic kidney disease; N18.31 Chronic kidney disease, stage 3a; E03.9 Hypothyroidism, unspecified
CPT/HCPCS: 82043; 82570; G0103